=== PATIENT | male | born 1965 | race Caucasian/White ===

== ENCOUNTER → 2016-07-20 | Outpatient (CLI) | payer MEDICARE | LOC: RAD 13:01 | PROVIDERS: ATTEND Specialist | DX: R10.9 Unspecified abdominal pain (principal) | CPT/HCPCS: 74177 ==

== ENCOUNTER → 2017-03-22 | Outpatient (CLI) | payer MEDICARE ==
--- NOTE | 2017-03-22 13:43 | RADIOLOGY REPORT (SQ) ---
EXAM DESCRIPTION: CHEST PA/LAT COMPLETED DATE/TIME: 03/22/2017 11:12 am REASON FOR STUDY: SOLITARY PULMONARY NODULE COMPARISON: 10/20/2015 NUMBER OF VIEWS: Two view. TECHNIQUE: Frontal and lateral radiographic views of the chest acquired. LIMITATIONS: None. FINDINGS: LUNGS AND PLEURA: Hyperinflation related to COPD. No infiltrates. No masses. No pleura l effusions. MEDIASTINUM AND HILAR STRUCTURES: No masses or contour abnormalities. HEART AND VASCULATURE: Heart normal size. No evidence for failure. BONY STRUCTURES: No acute findings. HARDWARE: None. OTHER: No other significant finding. IMPRESSION: COPD. No active pulmonary disease. No nodule identified as described in the clinical i nformation. TECHNICAL DOCUMENTATION: JOB ID: [id number] [employer]- All Rights Reserved
== END ==
LOC: RAD 10:48
PROVIDERS: ATTEND Specialist
DX: R91.1 Solitary pulmonary nodule (principal)
CPT/HCPCS: 71020

== ENCOUNTER 2017-06-03 11:41 | Emergency (ER) | payer MEDICARE, MEDICAID ==
[2017-06-03 11:50] VITALS: BP 140/80
[2017-06-03 13:08] LABS: ABSOLUTE BASOPHILS # (AUTO) 0.1 10^3/uL (0.0-0.2); ABSOLUTE EOSINOPHILS # (AUTO) 0.3 10^3/uL (0.0-0.6); ABSOLUTE LYMPHOCYTES (AUTO) 2.1 10^3/uL (0.5-4.7); ABSOLUTE NEUT (AUTO) 8.5 10^3/uL (1.7-8.2); BASOPHILS % (AUTO) 0.6 % (0-2); EOSINOPHILS % (AUTO) 2.8 % (0-6); HEMATOCRIT 40.9 % (37.9-51.0); HEMOGLOBIN 14.4 g/dL (13.5-17.0); HGB HCT DIFFERENCE 2.3; LYMPHOCYTES % (AUTO) 17.5 % (13-45); MEAN CORPUSCULAR HEMOGLOBIN 38.6 pg (27.0-33.4); MEAN CORPUSCULAR HGB CONC 35.1 g/dL (32.0-36.0); MEAN CORPUSCULAR VOLUME 110 fl (80-97); MONOCYTES % (AUTO) 8.4 % (3-13); RED BLOOD COUNT 3.72 10^6/uL (4.35-5.55); RED CELL DISTRIBUTION WIDTH 12.8 % (11.5-14.0); SEGMENTED NEUTROPHILS % (AUTO) 70.7 % (42-78)
[2017-06-03 13:10] LABS: APPEARANCE,URINE CLEAR; BILIRUBIN,URINE NEGATIVE (NEGATIVE); GLUCOSE, URINE NEGATIVE (NEGATIVE); KETONES,URINE NEGATIVE (NEGATIVE); LEUKOCYTE ESTERASE,URINE NEGATIVE (NEGATIVE); NITRITE,URINE NEGATIVE (NEGATIVE); PROTEIN,URINE NEGATIVE (NEGATIVE); URINE SPECIFIC GRAVITY 1.005; UROBILINOGEN,URINE NEGATIVE mg/dL (<2.0)
--- NOTE | 2017-06-03 13:20 | RADIOLOGY REPORT (SQ) ---
EXAM DESCRIPTION: CT HEAD WITHOUT COMPLETED DATE/TIME: 06/03/2017 12:52 pm REASON FOR STUDY: right leg weakness COMPARISON: None. TECHNIQUE: Axial images acquired through the brain without intravenous contrast. Images reviewed wi th bone, brain and subdural windows. Images stored on PACS. All CT scanners at this facility use dose modulation, iterative reconstruction, and/or weight based d osing when appropriate to reduce radiation dose to as low as reasonably achievable (ALARA). [facility]: Dose Right [facility]: CareDose [facility]: Dose Right [facility]: Teradose 4D [facility]: Smart scroll kit RADIATION DOSE: Up-to-date CT equipment and radiation dose reduction techniques were employed. CTDIv ol: 64.6 mGy. DLP: 1163 mGy-cm. mGy. LIMITATIONS: None. FINDINGS: VENTRICLES: Normal size and contour. CEREBRUM: No masses. No hemorrhage. No midline shift. No evidence for acute infarction. Normal gra y/white matter differentiation. No areas of low density in the white matter. CEREBELLUM: No masses. No hemorrhage. No alteration of density. No evidence for acute infarction. There is diffuse prominence of the sulci and the possibility of cerebellar atrophy should be conside red. EXTRAAXIAL SPACES: No fluid collections. No masses. ORBITS AND GLOBE: No intra- or extraconal masses. Normal contour of globe without masses. CALVARIUM: No fracture. PARANASAL SINUSES: No fluid or mucosal thickening. SOFT TISSUES: No mass or hematoma. OTHER: No other significant finding. IMPRESSION: There is diffuse prominence of the sulci in the posterior fossa and the possibility of c erebellar atrophy should be considered. No other significant intracranial abnormalities were identif ied. Other findings as noted above EVIDENCE OF ACUTE STROKE: NO. COMMENT: Quality ID # [id number]: Final reports with documentation of one or more dose reduction techniques (e.g., Automated exposure control, adjustment of the mA and/or kV according to patient size, use of iterative reconstruction technique) TECHNICAL DOCUMENTATION: JOB ID: [id number]- All Rights Reserved
[2017-06-03 13:25] LABS: ALANINE AMINOTRANSFERASE 35 U/L (21-72); ALBUMIN 4.3 g/dL (3.5-5.0); ALKALINE PHOSPHATASE 84 U/L (38-126); ANION GAP 13 (5-19); ASPARTATE AMINO TRANSFERASE 27 U/L (17-59); BILIRUBIN,DIRECT 0.3 mg/dL (0.0-0.4); BILIRUBIN,TOTAL 0.6 mg/dL (0.2-1.3); BLOOD UREA NITROGEN 12 mg/dL (7-20); CALCIUM 9.6 mg/dL (8.4-10.2); CARBON DIOXIDE 24 mmol/L (22-30); CHLORIDE 103 mmol/L (98-107); CREATININE RESULT 0.88 mg/dL (0.52-1.25); GLUCOSE 84 mg/dL (75-110); SODIUM 140.1 mmol/L (137-145); TOTAL PROTEIN 6.7 g/dL (6.3-8.2)
--- NOTE | 2017-06-03 14:21 | RADIOLOGY REPORT (SQ) ---
EXAM DESCRIPTION: L SPINE WHOLE COMPLETED DATE/TIME: 06/03/2017 1:09 pm REASON FOR STUDY: back pain COMPARISON: None. NUMBER OF VIEWS: Five views including obliques. TECHNIQUE: AP, lateral, oblique, and sacral radiographic images acquired of the lumbar spine. LIMITATIONS: None. FINDINGS: MINERALIZATION: Normal. SEGMENTATION: Normal. No transitional anatomy. ALIGNMENT: There is minimal retrolisthesis of L3 in relation to L4. VERTEBRAE: Maintained height. No fracture or worrisome bone lesion. DISCS: There is almost complete loss of the L2-L3 disc space heights with associated osteophytic hansa ing. Osteophytic lipping is identified at other levels POSTERIOR ELEMENTS: Pedicles and facets are intact. No pars defect or posterior arch defects. HARDWARE: None in the spine. PARASPINAL SOFT TISSUES: Normal. PELVIS: Intact as visualized. No fractures or worrisome bone lesions. SI joints intact. OTHER: No other significant finding. IMPRESSION: Degenerative changes as noted above TECHNICAL DOCUMENTATION: JOB ID: [id number] [employer]- All Rights Reserved
--- NOTE | 2017-06-03 15:45 | ER Document Report ---
ED General - General Chief Complaint: Fall Stated Complaint: RIGHT SIDE AND LEG PAIN Time Seen by Provider: 06/03/17 11:59 TRAVEL OUTSIDE OF THE [place] 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 Patient states today awoke unable to use his right leg patient states feels very weak and is unable to move it patient states this as he is moving his leg back and forth and is trembling because he is cold. Patient states he is unable to bear any weight and states numbness and tingling. Denies any trauma denies any fevers chills nausea vomiting. Denies any pain to the hip. Denies fevers chills nausea vomiting denies any urinary or bowel incontinence however patient is soaked in urine patient states while on the floor did urinate on himself. Patient states he supposed to walk with a walker however is noncompliant with his walker. - Related Data Allergies/Adverse Reactions: statins Allergy (Uncoded 06/03/17 11:49) Past Medical History - Social History Smoking Status: Current Every Day Smoker Chew tobacco use (# tins/day): No Frequency of alcohol use: None Drug Abuse: None Family History: Reviewed & Not Pertinent Patient has suicidal ideation: No Patient has homicidal ideation: No - Past Medical History Cardiac Medical History: Reports: Hx Hypertension Endocrine Medical History: Reports: Hx Diabetes Mellitus Type 2 Renal/ Medical History: Denies: Hx Peritoneal Dialysis Review of Systems - Review of Systems Constitutional: No symptoms reported EENT: No symptoms reported Cardiovascular: No symptoms reported Respiratory: No symptoms reported Gastrointestinal: No symptoms reported Genitourinary: No symptoms reported Male Genitourinary: No symptoms reported Musculoskeletal: Back pain Skin: No symptoms reported Hematologic/Lymphatic: No symptoms reported Neurological/Psychological: No symptoms reported Physical Exam - Vital signs Vitals: Temp Pulse Resp BP Pulse Ox 98.0 F 71 16 140/80 H 98 06/03/17 11:48 06/03/17 11:48 06/03/17 11:48 06/03/17 11:48 06/03/17 11:48 Interpretation: Normal - General General appearance: Appears well, Alert - HEENT Head: Normocephalic, Atraumatic Eyes: Normal Pupils: PERRL - Respiratory Respiratory status: No respiratory distress Chest status: Nontender Breath sounds: Normal Chest palpation: Normal - Cardiovascular Rhythm: Regular Heart sounds: Normal auscultation Murmur: No - Abdominal Inspection: Normal Distension: No distension Bowel sounds: Normal Tenderness: Nontender Organomegaly: No organomegaly - Rectal Notes: Normal sphincter tone - Back Back: Normal, Nontender - Extremities General upper extremity: Normal inspection, Nontender, Normal color, Normal ROM , Normal temperature General lower extremity: Normal inspection, Nontender, Normal color, Normal temperature - Neurological Neuro grossly intact: Yes Cognition: Normal Orientation: AAOx4 Jim Coma Scale Eye Opening: Spontaneous Jim Coma Scale Verbal: Oriented Jim Coma Scale Motor: Obeys Commands [place] Coma Scale Total: 15 Speech: Normal Sensory: Normal Notes: Sensory seems to be intact. Patient upon pinpricking states he feels equal both sides. Although his states I barely feel anything there. Patient is able to draw his legs up testing Babinski with a tongue depressor and does not like the sensation that causes. Patient is able to lift his right leg off the bed and hold 5 seconds the leg does shake during that time. Patient is also able left his left leg. Patient is able to bend his leg his knees. Attempting to ablate patient by the nursing staff patient is unable to bear any weight on the right leg however patient was able to pick both his legs up and allow the nurse to pick him the patient up into the bed. - Psychological Associated symptoms: Normal affect, Normal mood - Skin Skin Temperature: Warm Skin Moisture: Dry Skin Color: Normal Course - Re-evaluation Re-evalutation: 06/03/17 15:49 Patient coming in for right leg weakness. Laboratory results CT scan of the head did not show any acute pathology. Patient is able to move his leg however is it is unable to bear any weight. Legs not flaccid not concerned for any intracranial pathology patient does continue to have senior in the bed patient states he thinks he is just missing the urinal. Questionable incontinence. Rectal tone is normal. Again sensation looks to be intact although patient states he has having some numbness. For completeness sake I did offer MRI however patient is unable to provide proper documentation for his iliac stent. Discussed with Nik [facility] unable to pull up any documentation of the patient having an iliac stent. Discussed with our radiology team will get a CT scan lumbar spine look for obvious concerning lesions. At this time on physical examination I highly doubt any critical lesions is that the patient does have full movement of his right leg just refuses to bear weight. I do believe the patient is more likely just missing the urinal is that now the family is at bedside patient no longer is wet with urine. Also patient does seem to have sensation intact as that he does move his leg appropriately to stimulation on the plantar side of his foot. I believe getting the imaging is more or less for completeness. 06/03/17 16:29 CT of the lumbar spine was performed due to inability to perform MRI and CT does not show any significant spinal cord disease. I did witness patient moved himself from stretcher to CT temporal in the CAT scan room. Will discharge patient home follow-up with his PCP. More likely progression patient's disease. 06/03/17 16:30 Phone call back from [facility] at this time unable to verify the patient's stent type therefore MRI is definitely not able to be performed today I think with the finding of the CT scan patient will be good for outpatient evaluation. - Vital Signs Vital signs: Temp Pulse Resp BP Pulse Ox 98.1 F 71 16 140/80 H 98 06/03/17 11:48 06/03/17 11:48 06/03/17 11:48 06/03/17 11:48 06/03/17 11:48 - Laboratory Result Diagrams: 06/03/17 12:40 06/03/17 12:40 Laboratory results interpreted by me: 06/03/17 12:40 WBC 12.0 H RBC 3.72 L MCV 110 H MCH 38.6 H Plt Count 533 H Absolute Neutrophils 8.5 H Discharge - Discharge Clinical Impression: Ataxia, Right leg weakness Falls Qualifiers: Encounter type: initial encounter Qualified Code(s): W19.XXXA - Unspecified fall, initial encounter Condition: Stable Disposition: HOME-SNF (ED ONLY) Instructions: Weakness ([facility]) Additional Instructions: Your examination today does not show any signs of any significant pathology. Your CT scan does not show any signs of significant neurological injury. Do not have a reason for your right leg weakness this could be possible advancement of your underlying chronic disease. Highly recommend using the walker prescribed for. Please use your walker at home follow-up with your primary care physician. Continue your home medications. I will have our social work therapist contact you to make sure that you have appropriate access to material that you need also access to possible physical therapy. Return if symptoms worsen Prescriptions: Walker [Ultra-Light Rollator] 1 each [facility] DAILY #1 each Wheelchair 1 each [facility] DAILY #1 each Referrals: JOSESITO KINGSTON MD [Primary Care Provider] - Follow up in 3-5 days
--- NOTE | 2017-06-03 16:38 | RADIOLOGY REPORT (SQ) ---
EXAM DESCRIPTION: CT LUMBAR SPINE WITHOUT COMPLETED DATE/TIME: 06/03/2017 4:17 pm REASON FOR STUDY: right leg weakness COMPARISON: None. TECHNIQUE: Axial images acquired through the lumbar spine without intravenous contrast. Images revi ewed with lung, soft tissue and bone windows. Reconstructed coronal and sagittal MPR images reviewed . All images stored on PACS. All CT scanners at this facility use dose modulation, iterative reconstruction, and/or weight based d osing when appropriate to reduce radiation dose to as low as reasonably achievable (ALARA). [facility]: Dose Right [facility]: CareDose [facility]: Dose Right [facility]: Teradose 4D [facility]: Neema RADIATION DOSE: mGy. LIMITATIONS: None. FINDINGS: SEGMENTATION: Normal. No transitional anatomy. ALIGNMENT: There is some minimal retrolisthesis of L 2 in relation L3. VERTEBRAL BODIES: No fractures. No dislocation. No acute findings. DISCS: There is almost complete loss of the L2-L3 disc space heights with associated osteophytic hansa ing. There is some mild decrease in the L3-L4 disc space heights with osteophytic lipping. There is symmetric disc bulging at the L2-L3 level resulting in [id number] spinal stenosis. Symmetric disc bulging is identified at the L3-L4 disc space level resulting in moderate spinal stenosis. Mild symmetric disc bulging is identified at the L4-L5 level without significant spinal stenosis. PEDICLES, TRANSVERSE PROCESSES: No fractures. No dislocation. No acute findings. FACETS, POSTERIOR ELEMENTS: No fractures. No dislocation. HARDWARE: None in the spine. VISUALIZED RIBS: No fractures. SOFT TISSUES: No significant or acute finding in adjacent soft tissues. OTHER: No other significant finding. IMPRESSION: Multilevel degenerative changes as noted above. Findings as noted above. If clinically warranted MRI may be of value for better evaluation of the disc space levels. Other findings as not ed above. TECHNICAL DOCUMENTATION: JOB ID: [id number] Quality ID # [id number]: Final reports with documentation of one or more dose reduction techniques (e.g., Au tomated exposure control, adjustment of the mA and/or kV according to patient size, use of iterative reconstruction technique) 2010 [employer]- All Rights Reserved
== END 2017-06-03 16:00 ==
LOC: ER 11:41
DX: G11.9 Hereditary ataxia, unspecified (principal); M62.81 Muscle weakness (generalized); R52 Pain, unspecified; R53.1 Weakness; M79.606 Pain in leg, unspecified; W19.XXXA Unspecified fall, initial encounter; F17.200 Nicotine dependence, unspecified, uncomplicated
CPT/HCPCS: 36415; 70450; 72110; 72131; 80053; 81001; 85025; 99284

== ENCOUNTER → 2018-06-19 | Outpatient (CLI) | payer MEDICARE, MEDICAID ==
--- NOTE | 2018-06-19 15:08 | RADIOLOGY REPORT (SQ) ---
EXAM DESCRIPTION: LUMBAR SPINE COMPLETE COMPLETED DATE/TIME: 06/19/2018 2:56 pm REASON FOR STUDY: LOW BACK PAIN M54.5 LOW BACK PAIN COMPARISON: 06/03/[address] lumbar spine 06/03/2017 Save NUMBER OF VIEWS: Five views including obliques. TECHNIQUE: AP, lateral, oblique, and sacral radiographic images acquired of the lumbar spine. LIMITATIONS: None. FINDINGS: MINERALIZATION: Normal. SEGMENTATION: Normal. No transitional anatomy. ALIGNMENT: Slight retrolisthesis of L2 over L3 VERTEBRAE: Maintained height. No fracture or worrisome bone lesion. DISCS: High-grade disc space narrowing at L2-3 and, to a lesser extent L1-2, L3-4, and L5-S1 POSTERIOR ELEMENTS: Lower lumbar facet arthropathy HARDWARE: None in the spine. PARASPINAL SOFT TISSUES: Left proximal common iliac arterial vascular stent PELVIS: Not included in the field of view. SI joints unremarkable OTHER: No other significant finding. IMPRESSION: Multilevel degenerative changes similar compared to CT and plain films from 2017 TECHNICAL DOCUMENTATION: JOB ID: [id number] [employer]- All Rights Reserved Reading location - IP/workstation name: [email or web address]
== END ==
LOC: OD 14:36
PROVIDERS: ATTEND Internal Medicine
DX: M54.5 Low back pain (principal)
CPT/HCPCS: 72110